=== PATIENT | female | born 1965 | race Caucasian/White ===

== ENCOUNTER 2016-12-03 11:36 | Inpatient (IN) | payer OTHER, MEDICARE ==
[~2016-12-03] VITALS: Ht 157.5 cm; Wt 56.7 kg
--- NOTE | 2016-12-03 11:43 | NUR ---
WILBERTA ON PEER +SI. PER PD AND EMS, PT HAS MULTIPLE MEDICAL PROBLEMS AND STATES SHE WANTS TO . PD STATES PT CALLED BECAUSE SHE THINKS HER IS LEAVING HER AFTER HE GETS HOME FROM WORK TODAY, THAT THERE'S RATS IN HER CONDO, AND HER CONDO IS GOING TO BE TORN DOWN. UPON ARRIVAL PT STATES "I DON'T KNOW WHY I'M HERE, I JUST WANT TO ! I CAN'T GO BACK TO MY CONDO, THERE'S PILES OF STUFF EVERYWHERE, THERE'S GOING TO BE RATS SOON." PT AMBULATES WITH SLOW STEADY GAIT BUT STUMBLES OCCASIONALLY. PT WANDED AND CHANGED.
--- NOTE | 2016-12-03 11:44 | ED PSYCHIATRIC COMPLAINT ---
History of Present Illness General Chief Complaint: Psychiatric Related Complaint Stated Complaint: BIBA +SI] Source: patient Exam Limitations: clinical condition Vital Signs & Intake/Output Vital Signs & Intake/Output Vital Signs Date Time Temp Pulse Resp B/P B/P Pulse O2 O2 Flow FiO2 Mean Ox Delivery Rate 12/05 1609 81 97/62 12/05 1600 81 97/62 12/05 1229 73 94/58 12/05 1216 73 94/58 12/05 0804 79 101/70 12/05 0741 97.8 79 101/70 12/04 1952 98.1 90 90/64 ED Intake and Output 12/05 0000 12/04 1200 Intake Total Output Total Balance Patient 125 lb Weight Allergies Coded Allergies: erythromycin base (PALPATIONS 12/03/16) Triage Nurses Notes Reviewed? yes Duration: unknown duration Severity: moderate, severe Associated Symptoms: anxiety, suicidal ideation HPI: This is a 51-year-old female with history of reported chronic renal disease who presents via EMS from home accompanied by police on a PEER for evaluation for making suicidal statements. She states that she wants to kill herself. Her left the apartment today and she states the condo is going to be torn down and needs to get home. She states she wants to kill herself but she needs to leave and it was a mistake to call anybody to come here today. If she doesn' t get home she is also afraid her apartment will be overrun with rodents. Unable to contribute to any history. Patient actively trying to elope from the ED on evaluation. (MICHELL CORTES MD) Past History Medical History Any Pertinent Medical History? see below for history (UNABLE TO OBTAIN FROM PT) Psychiatric: anxiety (?) Surgical History Surgical History: unobtainable Family History Hx Contributory? No (MICHELL CORTES MD) Review of Systems Review of Systems Constitutional: Reports: see HPI (unable to obtain). (MICHELL CORTES MD) Physical Exam Physical Exam General Appearance: awake, anxious, mild distress, moderate distress, thin Head: atraumatic, normal appearance Eyes: Bilateral: normal appearance, PERRL, EOMI. Ears, Nose, Throat: normal pharynx, hearing grossly normal Neck: normal inspection, supple, full range of motion Respiratory: normal breath sounds, chest non-tender, no respiratory distress Cardiovascular: regular rate/rhythm Neurological/Psychiatric: awake, agitated, alert, anxious Appearance/Memory/Insight: disheveled, impaired insight Behavoir/Eye Contact/Speech: uncooperative Thoughts/Hallucinations: no apparent hallucination SAD PERSONS Done? unobtained due to conditi (WADR ALMEIDA,MICHELL) Progress Differential Diagnosis: PSYCHOSIS, ANXIETY, PARANOIA Plan of Care: Orders Procedure Date/time Status THYROXINE 12/06 06 Active HEPATIC FUNCTION PANEL 12/06 06 Active GAMMA GLUTAMYL TRANSFERASE 12/06 06 Active THYROID ANTIBODY PANEL 12/06 06 Active Change service to 12/05 UNK Active Current Medications Sig/Brett Start time Last Medication Dose Stop Time Status Admin Nystatin 1 CEDRIC TID 12/05 1600 AC 12/05 (Mycostatin) 1635 Acetaminophen 650 MG Q6P PRN 12/04 1045 AC (Tylenol) Al Hydroxide/Mg 30 ML Q4-6 PRN PRN 12/04 1045 AC Hydroxide (Maalox Plus) Gabapentin 300 MG Q6P PRN 12/04 1045 AC (Neurontin) Lorazepam 1 MG Q6P PRN 12/04 1045 AC 12/04 (Ativan) 2218 Magnesium Hydroxide 30 ML AT BEDTIME PRN 12/04 1045 AC (Milk Of Magnesia) Trazodone HCl 50 MG AT BEDTIME NEED.. 12/04 1045 AC 12/04 (Desyrel) 2218 Carbamazepine 200 MG BID 12/03 2200 AC 12/05 (Tegretol) 0743 Laboratory Tests 12/05/16 0600: Total Bilirubin Cancelled, Direct Bilirubin Cancelled, AST Cancelled, ALT Cancelled, Alkaline Phosphatase Cancelled, Total Protein Cancelled, Albumin Cancelled 12/04/2016 7:13:01 AM Patient signed out to me by Dr. Dimas. Pending crisis evaluation. (WARD ALMEIDA,MICHELL) Diagnostic Imaging: Viewed by Me: CT Scan. Discussed w/RAD: CT Scan. Radiology Impression: HEAD CT - WNL Hand-Off Endorsed To: WIL ALMEIDA,PRAMOD Cassidy Endorsed Time: 1899 Pending: consult (CRISIS) (MICHELL CORTES MD) Comments: Patient has been seen and evaluated by the line ordering clinician. A PEC has been signed. Patient to remain in the emergency department tonight anticipation of admission 2 Inpatient Psychiatry morning. Patient signed out to Dr. Cortes on 12/04/2016 at 0700. (WIL ALMEIDA,PRAMOD Cassidy) Departure Departure Time of Disposition: 1041 Disposition: STILL A PATIENT Condition: Stable Clinical Impression Primary Impression: Anxiety Secondary Impressions: Schizophrenia, unspecified, Suicidal ideation Referrals: CYNTHIA GIRON MD (PCP/Family) Departure Forms: Customer Survey General Discharge Information Psych Admission Note Psychiatric Admission: I have seen and evaluated DESTIN REA. I have also reviewed all the pertinent lab results and diagnostic results. DESTIN REA will be admitted to our inpatient Psychiatric unit for treatment and care. (WARD ALMEIDA,MICHELL) Critical Care Note Critical Care Note Critical Care Time: 30-74 min (MICHELL CORTES MD) 12/03/16 1836: Urine Opiates Screen < 100.00, Methadone Screen < 40, Barbiturate Screen < 60, Ur Phencyclidine Scrn < 6.00, Amphetamines Screen 135, U Benzodiazepines Scrn > 800 H, Urine Cocaine Screen < 50, Urine Cannabis Screen < 5.00, Urine Color YEL , Urine Clarity CLEAR, Urine pH 6.0, Ur Specific Gobler 1.010, Urine Protein NEG, Urine Ketones 40 H, Urine Nitrite NEG, Urine Bilirubin NEG@ICTO, Urine Urobilinogen 1.0, Ur Leukocyte Esterase NEG, Ur Microscopic EXAM NOT REQUIRED, Urine Hemoglobin NEG, Urine Glucose NEG 12/03/16 1315: Anion Gap 14, Estimated GFR > 60, BUN/Creatinine Ratio 14.3, Glucose 125 H, Calcium 9.4, Total Bilirubin 1.8 H, AST 41 H, ALT 56 H, Alkaline Phosphatase 76, Total Protein 7.6, Albumin 3.9, Globulin 3.7, Albumin/Globulin Ratio 1.1, TSH 1.540, Free T4 1.95 H, CBC w Diff NO MAN DIFF REQ, RBC 4.39, MCV 91.3, MCH 31.0, RDW 13.6, MPV 8.6, Gran % 74.1, Lymphocytes % 19.1 L, Monocytes % 5.6, Eosinophils % 0.9, Basophils % 0.3, Absolute Granulocytes 5.4, Absolute Lymphocytes 1.4, Absolute Monocytes 0.4, Absolute Eosinophils 0.1, Absolute Basophils 0, PUBS MCHC 34.0, Serum Alcohol < 10.0 12/03/16 1144: RPR Titer/FTA Pending, Lyme Disease Antibody Pending 12/04/2016 7:13:01 AM Patient signed out to me by Dr. Dimas. Pending crisis evaluation. (WARD ALMEIDA,MICHELL) Comments: Patient has been seen and evaluated by the line ordering clinician. A PEC has been signed. Patient to remain in the emergency department tonight anticipation of admission 2 Inpatient Psychiatry morning. Patient signed out to Dr. Cortes on 12/04/2016 at 0700. (WIL ALMEIDA,PRAMOD Cassidy) Departure Departure Time of Disposition: 1041 Disposition: STILL A PATIENT Condition: Stable Clinical Impression Primary Impression: Anxiety Secondary Impressions: Schizophrenia, unspecified, Suicidal ideation Referrals: CYNTHIA GIRON MD (PCP/Family) Departure Forms: Customer Survey General Discharge Information Psych Admission Note Psychiatric Admission: I have seen and evaluated DESTIN REA. I have also reviewed all the pertinent lab results and diagnostic results. DESTIN REA will be admitted to our inpatient Psychiatric unit for treatment and care. (MICHELL CORTES MD) Critical Care Note Critical Care Note Critical Care Time: 30-74 min (MICHELL CORTES MD)
--- NOTE | 2016-12-03 11:50 | NUR ---
1 VALUABLES BAG PLACED IN ER SAFE
--- NOTE | 2016-12-03 11:55 | NUR ---
PT REPORTS SHE SELF DIAGNOSED HER CKD. PT STATES SHE WEIGHS APPROXIMATELY 300LBS. PT APPEARS TO WEIGH 150-175LBS. ANSWERING ONLY SOME QUESTIONS APPROPRIATELY
--- NOTE | 2016-12-03 12:11 | NUR ---
PT ATTEMPTING TO LEAVE DEPARTMENT. DR. HOPPER AT BEDSIDE. ORDER #7 INITIATED. PT ESCORTED BACK TO STRETCHER. SITTERS REMAIN WITHIN DIRECT VIEW
--- NOTE | 2016-12-03 12:30 | NUR ---
PT PLACED INTO [address] HOPPER DUE TO EXTREME AGITATION AND AGGRESSIVE BEHAVIORS. SECURITY PRESENT DURING EVENT
--- NOTE | 2016-12-03 13:26 | NUR ---
PT REMAINS IN RESTRAINTS. CONTINUES TO SAY "I CAN'T STAY. I HAVE TO LEAVE. NO ONE IS GOINT TO PAY THIS HOSPITAL BILL. THEY ARE TEARING DOWN MY CONDO BECAUSE IT'S CONDEMNED AND THERE'S SO MUCH FOOD RATS WILL BE EVERYWHERE". UNABLE TO REDIRECT FROM THIS THOUGHT PROCESS OR PATIENT'S ATTEMPTS TO GET UP TO LEAVE. HOWEVER, PT COOPERATIVE WITH VS, ASSESSMENT & LAB DRAWS.
--- NOTE | 2016-12-03 13:30 | NUR ---
PT REMAINS IN RESTRAINTS. CONTINUES TO SAY "I CAN'T STAY. I HAVE TO LEAVE. NO ONE IS GOING TO PAY THIS HOSPITAL BILL. THEY ARE TEARING DOWN MY CONDO BECAUSE IT'S CONDEMNED AND THERE'S SO MUCH FOOD RATS WILL BE EVERYWHERE." UNABLE TO REDIRECT FROM THIS THOUGHT PROCESS OR PATIENT'S ATTEMPTS TO GET UP TO LEaVE. HOWEVER, PT COOPERATIVE WITH VS, ASSESSMENT AND LAB DRAWS
[2016-12-03 13:39] LABS: ABSOLUTE BASOPHIL COUNT 0 /CUMM (0.0-0.2); ABSOLUTE EOSINOPHIL COUNT 0.1 /CUMM (0.0-0.7); ABSOLUTE GRANULOCYTE CT 5.4 /CUMM (1.4-6.5); ABSOLUTE LYMPH COUNT 1.4 /CUMM (1.2-3.4); ABSOLUTE MONOCYTE COUNT 0.4 /CUMM (0.10-0.60); BASOPHIL % 0.3 % (0.0-2.0); EOSINOPHIL % 0.9 % (0-5); GRANULOCYTE % 74.1 % (42.2-75.2); HEMATOCRIT 40.1 % (37-47); MEAN CORPUSCULAR VOLUME 91.3 FL (81.0-99.0); MEAN PLATELET VOLUME 8.6 FL (7.4-10.4); PLATELET COUNT 172 /CUMM (130-400); RBC DISTRIBUTION WIDTH 13.6 % (11.5-14.5); RED BLOOD CELL CT 4.39 /CUMM (4.20-5.40); WHITE BLOOD CELL COUNT 7.3 /CUMM (4.8-10.8)
--- NOTE | 2016-12-03 13:46 | NUR ---
PT STATES SHE DOES NOT EAT OR DRINK "FOR DAYS" BECAUSE IT "BLOATS MY KIDNEY". TOOK SMALL SIP ONLY OF BRYCE MARIANNE WITH PO MEDICATION
--- NOTE | 2016-12-03 14:45 | NUR ---
PT REFUSED K-DUR DUE TO NOT WANTING TO EAT OR DRINK
--- NOTE | 2016-12-03 14:49 | NUR ---
PT RESTING CALMLY ON BED. SECURITY CALLED. 4PT RESTRAINTS REMOVED.
--- NOTE | 2016-12-03 15:27 | ED PSY CRISIS COLLATERAL NOTE ---
Collateral Note Collateral Note Family/Inform/Ritesh Contacts: 12/03/16 1450 - No utox results yet. 12/03/16 1455 - TC to NOK/Person to Contact, brother Gregory Peña, . He was not aware that the patient was in the hospital. He reports that she had not been feeling well lately, due to kidney problem and fluids. She has been having marital problems, but he is unaware of the details. He reports she has had problems with "cognitivity," memory lapse. He states that she had a "break-down " from a tick bite. He gives a confused report about her history, stating that her cognitive problems may have started in 2007. He describes a hospitalization at [facility] in 2011, stating that it was for a possible stroke or for treatment of the results of the tick bite [R/O neurolyme?] He states that he took her to Dr. Hutson's office in [place] in July, to get her medication refilled, which he thinks was clonazepam. He does not know what kind of MD he is, but thinks it had something to do with allergies. Gregory denies knowledge of any psychiatric hospitalization. He denies any suicide attempts. He does notthink she is using alcohol or street drugs. [facility] [place] with[facility] . Family psychiatric history included anxiety and depression in their mother; other history unknown. 12/03/16 1500 - TC to spouse, Hardik Williamson, (H). LVM and expect return call. 12/03/16 1520 - TC to Dr. Heidi Dumont, automatic driller and reamer, . I spoke with Dori in the office whoe reports that the patient has not been seen in the office since 2014. A Lyme titer was ordered at that time, and the result was negative. [Note: CT LIGHT EQUIPMENT OPERATOR shows Dr. Darnell ordering Alprazolam 0.5 mg #60 tabs for 30 days, filled on 02/15/16, 04/24/16, 07/17/16, 09/14/16, 11/05/16. The MD ordered clonazepam 0.5 mg #60 tabs for 20 days, filled on 08/15/16.] 12/03/16 Dr. Cortes, ED physician has ordered thyroid function test, Lyme titer, RPR/VDRL and CT head, based on the information from the brother. 12/03/16 5034 - TC returned from the patient's spouse, Hardik, who suggests that his cell phone may be a better way to contact him, , rather than the home phone, above. 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 He reports that the patient was hospitalized 4-5 years ago at [facility] for a similar presentation, where she stayed a week. He states that she was "Out of control, like now," had a hard time with reality, and had difficulty with cognitive functioning. When she was discharged, she was to start talk therapy at [facility] in [place], which she atteneded 1-2X/week, but stopped after a while. She was also on diazepam, as best as he remembers. she hasnot seen Dr. Darnell for about 15 months, and went to a new doctor last May,, Dr. Magaña, business systems administrator/religion instructor, . The patient was convinced she needed blood pressure medication, but the MD examined her and found her BP normal, and did not start medication for that. Recently, she stopped taking her alprazolam a few weeks ago. She was talking a lot about dying without a specific threat to herself, so Hardik hid her alprazolam, and gave her what she needed. This past weekend, she woke him up at 2 AM, to tell him that the condos where they live were going to be condemned and torn down. She woke him again 35 minutes later to insist that he listen to her about this matter. He states that she is not using street drugs or alcohol. She has not had recent psychiatric treatment, and Hardik indicates that they have limited means to afford this treatment. He does not know if she has had Lyme disease. He does not think she is safe to discharge to home.
--- NOTE | 2016-12-03 16:15 | NUR ---
PT INFORMED OF NEED FOR CT SCAN. PT AGREED TO GO TO CT. PT TO CT VIA WHEELCHAIR WITH SITTER
--- NOTE | 2016-12-03 16:35 | NUR ---
PT RETURN FROM CT. PER SITTER, PT HAD CT SCAN WITHOUT INCIDENT
--- NOTE | 2016-12-03 16:52 | CT SCAN REPORT ---
EXAMINATION: CT HEAD WITHOUT CONTRAST CLINICAL INFORMATION: Confused. Psychotic. New onset. COMPARISON: None TECHNIQUE: Contiguous axial imaging was performed from the skull base to vertex without intravenous administration of contrast. DLP: 614.11 mGy-cm FINDINGS: There is no evidence of acute intracranial hemorrhage or territorial infarction. No abnormal mass effect or midline shift is seen. Snow to white matter differentiation is well preserved. No extra-axial fluid collections are identified. The ventricles are normal in size. There is no abnormal attenuation within the brain parenchyma. The osseous structures and soft tissues are normal. The mastoid air cells and visualized portions of the paranasal sinuses are well aerated. IMPRESSION: No acute intracranial pathology.
--- NOTE | 2016-12-03 18:39 | NUR ---
PT RESTING IN ROOM. QUIET AT THIS TIME
--- NOTE | 2016-12-03 19:12 | NUR ---
CRISIS WITH PATIENT
--- NOTE | 2016-12-03 20:00 | NUR ---
ASSUMING CARE OF PT AT THIS TIME
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
--- NOTE | 2016-12-03 22:20 | NUR ---
PT SLEEPING. SITTERS WITHIN DIRECT VIEW
--- NOTE | 2016-12-03 22:50 | NUR ---
PHARMACY CALLED FOR TEGRETOL
[2016-12-03 23:00] VITALS: BP 119/68
--- NOTE | 2016-12-03 23:43 | NUR ---
PT MEDICATED WITH TEGRETOL PER EMAR. DENIES COMPLAINTS AT THIS TIME. PT ASKING THAT IF HER COMES HE SHOULD NOT BE ALLOWED BACK.
[2016-12-04] VITALS (7 sets, daily range): BP systolic 90–131; BP diastolic 58–65
--- NOTE | 2016-12-04 03:10 | NUR ---
PT AWAKE FOR CIWA AND VITALS, VSS, CIWA 0. SITTER REMAINS PRESENT. WILL CTM.
--- NOTE | 2016-12-04 05:25 | NUR ---
PT SLEEPING WITH REGULAR RR NOTED. SITTER PRESENT
--- NOTE | 2016-12-04 07:33 | NUR ---
PT APPEARS TO BE SLEEPING AT THIS TIME WITH REGULAR RESPIRATIONS AND EQUAL CHEST RISE AND FALL NOTED. SITTER REMAINS PRESENT FOR SAFETY/OBSERVATION. PER PRODUCT ACCOUNTANT, PT LIKELY ADMIT TO [facility] ONCE BED OPENS UP
--- NOTE | 2016-12-04 11:25 | NUR ---
PT STANDING IN ROOM TALKING TO VISITOR, NO COMPLAINTS VOICED. REFUSING TEGRETOL STATING SHE DOESN'T BELIEVE SHE NEEDS IT. DR LOPEZ PAGED AT 220 REGARDING MULTIPLE LABS ORDERED TO CLARIFY IF NEW DRAW NEEDED OR IF CAN BE ADDED ON AND TO NOTIFY THAT PT REFUSED MEDS. AWAITING CALLBACK.
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
--- NOTE | 2016-12-04 11:40 | NUR ---
CALLBACK REC'D FROM DR LOPEZ, STATING OK TO ADD UPREG TO PRIOR SPECIMEN BUT STATES PT MUST HAVE A NEW BMP DRAWN DUE TO RECIEVING KCL FOR K+ 3.2 YESTERDAY, STATES PT CANNOT GO TO [facility] UNLESS K+ IS WNL. ALSO REQUESTING HGBA1C AND LIPID PANEL TO BE DRAWN AT THE SAME TIME. LAV/SST SENT FROM [facility] NOW. PT AWARE OF NEED TO WAIT FOR LAB RESULTS PRIOR TO FINALIZING POC. DR LOPEZ AWARE PT REFUSING TEGRETOL.
--- NOTE | 2016-12-04 12:14 | SOCIAL WORKER PROG NOTE PSYCH ---
Social Work Progress Note Progress Note Pt presents as very anxious, paranoid, hyperverbal and perseverative. Pt continues to express that she wants to be . "Please just let me . No body want me anymore. Everyone has abandoned me. I can't take care of myself because I'm too bloated to be able to walk. I can't eat because it just makes me more bloated. I smell because I can't shower." Pt was told that she is being [facility]. Social hx was not able to be completed due to pt's current sx.
--- NOTE | 2016-12-04 12:45 | NUR ---
SPOKE WITH ED ON [facility], INFORMED THAT REPEAT LABS ARE ALL WNL AND THAT DR LOPEZ IS AWARE THAT PT REFUSED TEGRETOL AND MD DOES NOT BELIEVE SHE NEEDS IT AT THIS TIME. PER RN, THE FEMALE D/C FROM [facility] HAS BEEN DELAYED THUS THEY CANNOT ACCEPT THIS PT YET. RN TO CALL WHEN THE BED IS AVAILABLE.
--- NOTE | 2016-12-04 12:47 | NUR ---
PER PT REQUEST, PT WAS INFORMED OF THE RESULTS OF HER RENAL FUNCTIONS TESTS TODAY AND YESTERDAY AND EMPHASIZED THAT THEY WERE WNL. PT STATING SHE DOES NOT BELIEVE THAT CAN BE RIGHT "I'M NOT URINATING AND I CAN'T WALK." PT WAS OBSERVED WALKING AROUND WITHOUT DIFFICULTY SEVERAL MINUTES AGO. CURRENTLY LYING IN BED, AWAITING ADMISSION.
--- NOTE | 2016-12-04 13:09 | NUR ---
REPORT CALLED TO ED [facility], ROOM IS READY, TRANSPORT BOOKED.
--- NOTE | 2016-12-04 14:10 | NUR ---
Admission Assessment Patient admitted for psychosis and SI. Patient tearful during the admission process. States her condo is infested with rats that "gnaw at her". She states that she is >300 lb and cannot walk although her weight is 125lb. Patient states her spouse has left her and "what's the sense of living". Patient cannot contract for safety. Patient states she would probably cut herself but is unsure if she can do it here. Patient reports pain due to excessive weight. patient placed on 1:1 to ensure safety.
--- NOTE | 2016-12-04 17:59 | NUR ---
PT IS CALM, COOPERATIVE WITH STAFF AND PEERS, AND COMPLIANT WITH UNIT RULES. PT IS OFTEN IN MILIEU, STAYING MOSTLY IN THE PERIPHERY, LIMITED INTERACTION WITH OTHERS. APPEARS TO PRESENT DELUSIONAL THINKING AT TIMES. MOOD IS STABLE, AFFECT IS EUTHYMIC, COMMUNICATION IS ORGANZIED AND APPEARS NORMAL IN ALL RESPECTS, AND APPETITE IS NORMAL. PT MADE A PASSIVE SIO COMMENT AT 1600 VITALS AND WAS SUBSEQUENTLY CONTRACTED FOR SAFETY. CHARGE WAS NOTIFIED AFTERWARDS.
[2016-12-05] VITALS (8 sets, daily range): BP systolic 94–111; BP diastolic 58–70
--- NOTE | 2016-12-05 | NUR ---
SITTER WITH PATIENT, PT SITTING UP IN BED READING QUIETLY,
--- NOTE | 2016-12-05 02:00 | NUR ---
REMAINS ASLEEP WITH NO COMPLAINTS OFFERED. SITTER REMAINS IN PLACE.
--- NOTE | 2016-12-05 04:02 | NUR ---
REMAINS ASLEEP WITH NO UNSAFE ACTIVITY NOTED. SITTER MAINTAINED.
--- NOTE | 2016-12-05 06:07 | NUR ---
UNEVEBTFUL NIGHT SPENT, NO COMPLAINTS OFFERED. 1:1 OBSERVATION MAINTAINED.
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
--- NOTE | 2016-12-05 13:17 | History & Physical ---
General Information and HPI History of Present Illness: This middle-aged female is admitted for the first time to [facility] psychiatry and was brought in by the ambulance because of bizarre thoughts and abnormal behavior. She reportedly was very agitated and was acting in a psychotic manner and therefore admitted to psychiatry she admits that she has been very anxious and has no quality of life and did not want to live like this and therefore called the ambulance to come to the hospital. She also admits to getting tranquilizers from 2 different physicians in the area and taking them because she thought it will help her anxiety. She claims that she is not eating and drinking much because of her feeling that she retains all the food and water and gets too fat with that. She denies any other specific problems except for pain all over. Denies any shortness of breath palpitations or any chest pains in the front but does complain of body pains all over. She admits to having been admitted in [facility] psychiatry in 2011 and claims that she has gone to a clinic in [place] couple of times but then stopped going because they were not helping her and she has not gone there in many years. She denies taking any psychiatric medications other than the tranquilizers recently and she has not seen any psychiatrist in many years. She denies any other ongoing medical problems. She claims she does not drink any alcohol and does not smoke except for one drink that she took a few days ago when she was aggravated with her . 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 She denies any drug abuse and claims her mother in her 60s and father in his 70s due to diabetes. The mother had heart disease from rheumatic fever as a child ..she claims she has one family physician in [place] that she saw in July and was told that she was okay. Allergies/Medications Allergies: Coded Allergies: erythromycin base (PALPATIONS 12/03/16) Past History Travel History Traveled to [place] past 21 day No Medical History Neurological: NONE EENT: NONE Cardiovascular: hypertension Respiratory: asthma Hepatic: NONE Renal: NONE Musculoskeletal: NONE Psychiatric: anxiety (?) Endocrine: NONE Blood Disorders: NONE Cancer(s): NONE DUPLICATING MACHINE OPERATOR/Reproductive: NONE History of MRSA: No History of VRE: No History of CDIFF: No Isolation History: Standard Surgical History Surgical History: unobtainable Past Family/Social History Psychosocial History ETOH Use: denies use Illicit Drug Use: denies illicit drug use Employment History Employment Disability (Patient is unsure) Profession/Employer 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 EENTM: Denies: no symptoms. Cardiovascular: Denies: no symptoms. Respiratory: Denies: no symptoms. GI: Reports: see HPI (claims she has no bowel moveme). Genitourinary: Reports: see HPI (claims she does not pass any u). Musculoskeletal: Reports: see HPI, muscle pain (pain all over). Skin: Reports: rash (rash in the bellybutton .). Neurological/Psychological: Reports: see HPI, anxiety, confusion, emotional problems. Hematologic/Endocrine: Denies: no symptoms. Immunologic/Allergic: Denies: no symptoms. Exam & Diagnostic Data Last 24 Hrs of Vital Signs/I&O Vital Signs Date Time Temp Pulse Resp B/P B/P Pulse O2 O2 Flow FiO2 Mean Ox Delivery Rate 12/05 1229 73 94/58 12/05 1216 73 94/58 12/05 0804 79 101/12/05 0741 97.8 79 101/70 12/04 1952 98.1 90 90/64 12/04 1606 90 102/58 12/04 1550 90 102/58 12/04 1343 77 131/62 12/04 1343 77 131/62 Physical Exam General Appearance Alert, Cooperative, No Acute Distress Skin No Breakdown, has mild brownish discoloration in the umbilical area due to probable Laureen rash HEENT Atraumatic, PERRLA, EOMI, Mucous Membr. moist/pink Neck Supple, No JVD, No thryomegaly, +2 Carotid Pulse wo Bruit Lymphatic Cervical nl Cardiovascular Regular Rate, Normal S1, Normal S2, No Murmurs, Gallops, Rubs Lungs Clear to Auscultation, Normal Air Movement Abdomen Soft, No Tenderness, No Hepatospenomegaly, No Masses Neurological Exam Findings: Normal Gait, Normal Speech, Strength at 5/5 X4 Ext, Normal Tone, Cranial Nerves 3-12 NL Cranial Nerves II through XII: WNL Extremities No Clubbing, No Cyanosis, No Edema, No Tenderness/Swelling Assessment/Plan Assessment: This middle-aged female is admitted because of psychosis and schizophrenia. Is fairly stable on exam and has mild Laureen diaper rash in her umbilical area for which we'll use nystatin powder for symptomatic treatment. Otherwise she is fairly stable from medical standpoint on exam. Her total thyroxine as well as the liver functions were slightly abnormal and we will repeat them over next day or so to see if there is any change and get thyroid antibody panel to see if she has any abnormalities otherwise he does not require any treatment at this time As Ranked By This Provider Problem List: 1. Anxiety 2. Schizophrenia, unspecified Miscellaneous Miscellaneous Documentation Attending Case Discussed With: GRAY ALMEIDA,GEORGE Schmitz Primary Care Physician: CYNTHIA GIRON MD Patient sees these Specialists none Level of Patient Care: FORD Magaña Attending MD Review Statement Attending Statement Attending MD Statement: examined this patient, reviewed EMR data (avail), discussed with nursing Attending Assessment/Plan: This middle-aged female is admitted for schizophrenia. She does not have any acute medical problem at this time and her blood work is slightly abnormal with slightly elevated liver functions and thyroxine although the TSH is normal. We' ll repeat her total T4 and thyroid antibodies as well as functions to see any ongoing process for any worsening of liver functions and follow-up as needed.
--- NOTE | 2016-12-05 13:25 | NUR ---
PT IS MAINTANED ON 1:1 OBSERVATION FOR SAFETY. STILL ENDORSES SUICIDAL THOUGHTS BUT NO HALLUCINATIONS AT THIS MOMENT. VISIBLE ON THE MILIEU, PACING ONCE IN A WHILE, SOCIALIZES MINIMALLY WITH PEERS AND COOPERATIVE WITH TREATMENT. AFFECT IS FLAT, QUIET AND COOPERATIVE. VITAL SIGNS STABLE, APPETITE ADEQUATE. NO DISCOMFORT NOTED, NO COMPLAINTS VERBALIZED BY PT. NURSING CONTINUES TO MONITOR.
--- NOTE | 2016-12-05 14:36 | SOCIAL WORKER PROG NOTE PSYCH ---
Social Work Progress Note Progress Note SW met with patient for initial session. Pt shared that she came to the hospital by ambulance after calling 911 due to SI with plan to cut her wrist. She stated that she has been struggling with physical illness that leads to a build up of "fluid and muscle" resulting in her inability to engage in self care , particularly showering, due to physical pain. She reported a decrease in appetite and difficulty with sleep. She also reported difficulty with walking and sitting due to physical pain, however, she reported that doctors have been unable to identify a cause/dx. Pt stated that her condo is "being comdemned" and she can no longer live there due to the conditions ("the britt are going to fall in"). Pt believes that a divorce is in process with her and he has the paperwork, however, she is unsure as to where this stands. She refers to him as her "ex-." She reported recent worsening of depression and SI with a plan to cut her wrist. She stated that she believes that she would act on her SI if she left the hospital and would act on the SI while on the unit if given the opportunity to. Nursing staff was informed of this and pt is currently on a 1:1; pt was encouraged to utilize staff if feeling unsafe or should other concerns arise. Pt expressed concerns about where she will go once she leaves the hospital. She appeared to be in agreement with working with the treatment team to identify a discharge plan that would address her needs. Pt struggled to identify supports, however, stated that her brother came to visit her in the ER. She agreed to sign a ANDREA (which she did) for her brother and agreed to have him called to discuss his interest in participating in a family session. Pt stated that she would like to shower and will discuss this with nursing staff as she feels she is unable to on her own at this time.
--- NOTE | 2016-12-05 19:33 | NUR ---
PT IS CALM, COOPERATIVE WITH STAFF AND PEERS, AND COMPLIANT WITH UNIT RULES. OFTEN IN MILIEU, INTERACTING WITH OTHERS TO AN EXTENT, MORE WITH STAFF THEN WITH PEERS. PT PRESENTS SOME DELUSIONAL THINKING AT TIMES. MOOD IS STABLE, AFFECT IS EUTHYMIC TO FULL RANGE, COMMUNICATION IS ORGANIZED AND APPEARS NORMAL IN ALL RESPECTS, AND APPETITE IS NORMAL. PT DENIES SI AT THIS TIME. PT IS CURRENTLY ON A ONE TO ONE.
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
[2016-12-06] VITALS (8 sets, daily range): BP systolic 98–113; BP diastolic 57–78
--- NOTE | 2016-12-06 06:49 | NUR ---
PT IS ON 1:1 FOR INABILITY TO AGREE TO NOT HURT HERSELF. SHE WAS VISITED BY HER , THEN BROTHER, ON THE EVENING SHIFT. PT WENT TO BED EARLY AND SLEPT.
--- NOTE | 2016-12-06 11:41 | NUR ---
PT HAS BEEN CALM AND COOPERATIVE WITH STAFF AND UNIT ROUTINE. SHE IS OFF ONE TO ONE MONITORING AFTER DENYING ANY SUICIDAL THOUGHTS TODAY. PT HAS A CONSTRICTED AFFECT. SHE TOOK A SHOWER TODAY AND IS COMPLIANT WITH HER MED REGIME.SHE IS ATTENDING GROUPS
--- NOTE | 2016-12-06 16:09 | SOCIAL WORKER PROG NOTE PSYCH ---
Social Work Progress Note Progress Note SW met with pt. Pt reports ongoing concerns regarding where she will go after the this inpt treatment as well as who will pay for inpt and outpt tx. Pt also reported ongoing fears that staff and other patients are laughing at her and talking about her. Pt appeared agitated during this meeting. She stated that she does not want her (ex-) to be involved with her current care/ treatment and she "plays along" when he visits her. She identified her brother as a potential support and was in agreement with calling him to discuss a family meeting. She agreed to call with this SW later today when he is no longer at work. Pt reported that she was able to shower today. She reports that she continues to struggle with walking due to fluid build up and "extra weight." Pt denied SI or other safety concerns.
--- NOTE | 2016-12-06 19:06 | CP SOUTH PROGRESS NOTE PSYCH ---
Psych (Inpt) Progress Note Progress Note Include the following elements, when applicable: Involvement in the active treatment of the patient with behavioral observations of the patient and the patient's response to the treatment. Review of the ongoing treatment process in the context of the treatment plan. Indication of how multi-disciplinary staff members are carrying out the treatment plan. Plans for future interventions and recommendations for revision of the treatment plan. Liaison with other physicians/providers. Progress Note: PSYCHIATRIST NOTE, 12/06/2016: I discussed this patient's slow progress thus far, current mental status, treatment and discharge plans with staff team today in the daily morning ITTM and also met with her again myself in individual session. Patient is taking the low dose Zyprexa (5mg 2x/day) which I prescribed for her and denies any side effects, oversedation/daytime fatigue, etc., and ruth agitation has been much reduced. I will continue regular dose at current level for now but have encouraged patient to take the PRN's if she starts feeling again overwhelmed and unable to think clearly or has racing thoughts or continues to experience difficulty with ADL's, walking, anxiety/interacting with others. Patient continues to be convinced that she is terminally "fat" and for this reason cannot walk right or care for herself. We are trying to organize a family meeting before the coming weekend. Today, I received a copy of patient's inpatient record at [facility] from 07/2011 and had a chance to review it; it looks that a quite comprehensive work-up by [facility] internists and neurologists was done at that time which thoroughly ruled out any active "physical" condition, active Lyme Disease or other [employer] involvement in patient's symptomatology at that time. She experienced no gait disturbance during her stay at [facility] but a degree of disorganization and pressured speech was evident; she was considered possibly hypomanic and begun on low dose Risperdal; she was discharged on Risperdal, 2mg HS; Ativan, 0.5mg 2x/day; and atenolol, 25mg daily, to: the [facility] in [place], [place] as well as to [facility] in [place].
--- NOTE | 2016-12-06 20:36 | NUR ---
PT IS CALM, COOPERATIVE WITH STAFF AND PEERS, AND COMPLIANT WITH UNIT RULES. PT IS OFTEN IN MILIEU, INTERACTING WELL WITH OTHERS. PT PRESENTS SOME DELUSIONAL THINKIING AT TIMES. MOOD IS STABLE, AFFECT APPEARS EUTHYMIC TO FULL RANGE, COMMUNICATION IS ORGANIZED AND APPEAR NORMAL IN ALL RESPECTS, AND APPETITE IS NORMAL. PT DENIES SI AT THIS TIME.
[2016-12-07] VITALS (9 sets, daily range): BP systolic 106–123; BP diastolic 61–73
--- NOTE | 2016-12-07 05:54 | NUR ---
PT WATCHED BASKETBALL GAME WITH CARISSA Whittington PT LESS ANXIOUS, LESS BIZARRE, TOOK MEDS, WENT TO BED AFTER THE GAME.
--- NOTE | 2016-12-07 09:00 | SOCIAL WORKER PROG NOTE PSYCH ---
Social Work Progress Note Progress Note SW and pt called pt's brother, Gregory Iraheta, regarding a family meeting, which has been scheduled for 1pm today.
--- NOTE | 2016-12-07 11:26 | NUR ---
PT IS CALM, COOPERATIVE AND COMPLIANT. PT IS OFF ONE TO ONE NOW SHE HAS CONTRACTED FOR SAFETY. PT DENIES ANY SI/HI AT THIS MOMENT. PT IS NOT SCORING ON CIWA Q2. ORGANIZED AND COHERENT WHEN COMMUNICATING. PT IS MINIMALLY VISIBLE WTIHIN THE COMMUNITY AND DOES NOT ENGAGE MUCH WITH STAFF/PEERS. PT DID NOT COME OUT OF BED FOR BREAKFAST THIS MORNING SO SHE DID NOT EAT, ALTHOUGH ENCOURAGED TO. VS ARE STABLE. PT IS CURRENTLY IN BED SLEEPING.
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
--- NOTE | 2016-12-07 17:39 | SOCIAL WORKER TX PLAN PSYCH ---
Treatment Plan - Please Document: - Evidence that there is ongoing collaboration between - the patient and the interdisciplinary team, - including the patient's active participation and - responsibility for engaging in the treatment regimen, - and that the treatment plan is individualized and - relevant to the patient's conditions. - Treatment plan should reflect documentation indicating - that all active therapeutic efforts are included. Strengths/Capabilities: The patient appears to have a supportive , who would like to be involved in treatment. Physical Limitations (Interventions): The patient reports multiple medical issues, however it is unclear that any of them have been verified. Patient Identified Trmt Goals: "I want to feel better. I can't walk, I can't shower and I don't eat anything because it just becomes fat." Discharge Plan: Pt will be discharged to outpatient providers. Discharge plan and identification of providers pending. Problem/Goals #1 Problem #1: Mental Health (anxiety, psychosis) Goal (Short Term): Pt will identify at least 1 coping skill to effectively manage and reduce her anxiety and/or other MH sx. Goal (Senior Care): Pt will identify strategies to reduce her anxiety and MH sx, reporting her anxiety to be no higher than a 4/10. Interventions: Pt will be offered to attend group therapy, medication management, individual therapy and discharge planning. Modalities: Group therapy, individual therapy, family therapy and medication management. Problem/Goals #2 Problem #2: ADL's - pt reports showering irregularly and eating minimal amounts of food Goal (Short Term): Increase ADL's - pt will report engaging in at least one ADL per day (i.e. showering). Goal (Senior Care): Pt will report that she is independently engaging in two ADL's prior to discharge. Interventions: Pt will be offered group therapy, family therapy, individual therapy, medication management. Modalities: Group, individual and family therapy; medication management. DSM5/PS Stressors/Medical Prob Diagnosis' (DSM 5, Stressors, Medical): F29 Unspecified Schizophrenia Spectrum and other Psychotic Disorder Current GAF: 25 Treatment Team - Responsibilities of members of the treatment team include: - Medication Management- MD or AUTO BODY REPAIR TEACHER - Medication Administration and Monitoring- Nurse - Group Therapy- Occupational Therapist - 1:1 Therapy,Disch Planning,family involvement-Media Technician
--- NOTE | 2016-12-07 19:44 | NUR ---
PT IS CALM, COOPERATIVE WITH STAFF AND PEERS, AND COMPLIANT WITH UNIT RULES. BOTH IN AND OUT OF MILIEU, SOMETIMES SLEEPING IN PT ROOM. SLIGHTLY ISOLATIVE AND WITHDRAWN. MOOD IS STABLE, AFFECT IS EUTHYMIC TO FULL RANGE, COMMUNICATION IS ORGANIZED AND APPEARS NORMAL IN ALL RESPECTS, AND APPETITE IS NORMAL. PT DENIES SI AT THIS TIME.
[2016-12-08] VITALS (8 sets, daily range): BP systolic 108–121; BP diastolic 59–74
--- NOTE | 2016-12-08 05:00 | NUR ---
SLEPT POOR UNTIL ABOUT 0215. MEDICATION GIVEN FOR SLEEP AND RACING THOUGHTS WITH GOOD EFFECT NOTED.
--- NOTE | 2016-12-08 13:25 | NUR ---
PT IS ISOLATIVE FOR MOST OF THE DAY WITH A STABLE MOOD AND FLAT AFFECT, + APPETITE AND WENT TO PLANNING MEETING AND GOAL WAS TO WALK AROUND AND SOCIALIZE MORE. PT DID NOT ATTEND FOCUS GROUP THIS AFTERNOON, VITAL SIGNS ARE STABLE AND WHEN ASKED DIRECTLY DENIES THOUGHTS TO HARM SELF.
--- NOTE | 2016-12-08 14:26 | CP SOUTH PROGRESS NOTE PSYCH ---
Psych (Inpt) Progress Note Progress Note Include the following elements, when applicable: Involvement in the active treatment of the patient with behavioral observations of the patient and the patient's response to the treatment. Review of the ongoing treatment process in the context of the treatment plan. Indication of how multi-disciplinary staff members are carrying out the treatment plan. Plans for future interventions and recommendations for revision of the treatment plan. Liaison with other physicians/providers. Progress Note: Chart reviewed and progress d/w nursing staff. Interviewed patient this morning. She reports feeling "flat", depressed, no energy, poor sleep, limited appetite. Denies SI/HI. Somatic delusions persist, today describing worry about her body retaining liquid due to kidney dysfunction. Vitals wnl. No new labs today. MSE: Poorly groomed CF supine on bed. Cooperative though limited EC. Speech quiet, monotnous. Mood "not good". Affect constricted. TP impoverished. TC + somatic delusions, without SI/HI. Denies perceptual disturbance. Cognition grossly intact. I/J limited. A/P: Continue present mgmt as per primary team.
--- NOTE | 2016-12-08 19:23 | NUR ---
PT HAS BEEN IN BED FOR MOST OF THE DAY. WHEN SHE IS NOT IN BED SHE IS SEEN SITTING IN FRONT OF THE FISH TANK. PT SOCIALIZES WITH VISITORS AND SELECT PEERS MORE THAN STAFF. SHE IS QUIET, WITHDRAWN AND ISOLATIVE. PT HAS BEEN COMPLANT BUT CONSTRICTED. PT DENIES ANY THOUGHTS OF SI AT THIS TIME.
[2016-12-09] VITALS (8 sets, daily range): BP systolic 92–112; BP diastolic 63–73
--- NOTE | 2016-12-09 12:48 | CP SOUTH PROGRESS NOTE PSYCH ---
Psych (Inpt) Progress Note Progress Note Include the following elements, when applicable: Involvement in the active treatment of the patient with behavioral observations of the patient and the patient's response to the treatment. Review of the ongoing treatment process in the context of the treatment plan. Indication of how multi-disciplinary staff members are carrying out the treatment plan. Plans for future interventions and recommendations for revision of the treatment plan. Liaison with other physicians/providers. Progress Note: Chart reviewed and progress d/w nursing staff. Interviewed patient this morning. She remains highly somatically preoccupied. Complains of constipation, water retention, severe obesity, and lifts up her shirt to squeeze her belly. Otherwise complains of feeling severely depressed and anxious, unable to sleep for any appreciable stretch. "I just wish I would fall asleep and never wake up ". Vitals wnl. No new labs today. MSE: Poorly groomed CF supine on bed. Cooperative though limited EC. Speech quiet, monotnous. Mood "horribly depressed". Affect constricted. TP impoverished. TC + somatic delusions, + wish though denies plans to harm self or intent. Denies HI. Denies perceptual disturbance. Cognition grossly intact. I/J limited. A/P: Ongoing depression with psychotic features. Continue current management. It is unclear as to whether constipation is reality based, however she has prn options available to her.
--- NOTE | 2016-12-09 13:03 | NUR ---
PT HAS BEEN COMPLIANT AND COOPERATIVE WITH UNIT RULES. PT HAS BEEN ISOATLIVE IN BED FOR MOST OF SHIFT BUT DOES TAKE LAPS AROUND THE UNIT. PT HAS MINIMAL INTERACTION WITH OTHER PEERS. PT DID ATTEND PLANNING MEETING BUT DID NOT ATTEND FOCUS GROUP. PT MOOD IS STABLE WITH A FLAT AFFECT. PT REPORTS FEELING ANXIOUS TODAY. PT DENIES SI THOUGHTS.
--- NOTE | 2016-12-09 19:45 | NUR ---
PT HAS BEEN WALKING THRU THE HALLWAY WITH PEERS AND SOCIALIZES WITH SELECT PEERS AND STAFF. SHE IS QUIET AND APPEARS CONSTRICTED AND SLIGHTLY DEPRESSED BUT HAS NOT REPORTED ANY MENTAL OR EMOTIONAL DISTRESS. SHE HAS DENIED ANY THOUGHTS TO ACT ON SI AT THIS TIME BUT CAN EXPRESS PASSIVE INNUENDOS REGARDING NOT CARING WHAT HAPPENS IN THE FUTURE. PT HAS BEEN URGED TO TALK WITH STAFF FURTHER IF FEELINGS CHANGE OR WORSEN.
[2016-12-10] VITALS (8 sets, daily range): BP systolic 103–133; BP diastolic 61–73
--- NOTE | 2016-12-10 10:26 | CP SOUTH PROGRESS NOTE PSYCH ---
Psych (Inpt) Progress Note Progress Note Chart reviewed. BP 105/65 mmHg, Pulse 65/min, Temp 96.6 F Sleep log indicated that Lindsey slept well No new labs today Interviewed patient in bed this morning. Background: [address] [place] [address] Admission for a 51-year-old White woman currently living in a condo in [place], [place]., with her , and unemployed/on disability. Admitted because "I have real kidney disease...I don't know why I am here...I just want to ...I can't go back to my condo; there're piles of stuff everywhere; there' s going to be rats soon...Please let me . Nobody wants me anymore. Everyone has abandoned me. I can't take care of myself because I'm too bloated to be able to walk. I can't eat because it just makes me more bloated. I smell because I can't take a shower." Mental Status Update: Patient reported that she remains depressed and anxious, does not want antidepressants, named 4 SSRIs she has taken without benefit, despite sleep log she reported poor sleep and wanted something for anxiety. Cooperative, calm, sat in bed and had good eye contact, reduced speech, mood "depressed". Affect constricted. She seemed coherent, I was unable to elicit delusions, occasional wishing but no thoughts of suicide, denies plans to harm self or intent. Denied violent thoughts or HI. Denied hallucinations, cognition seemed grossly intact. A/P: Depressed and anxious, did not want antidepressants, agreeable to gabapentin for anxiety Add [id number] mg three times daily Lindsey will follow up with her regular treatment team tomorrow
--- NOTE | 2016-12-10 13:22 | NUR ---
LYING IN BED MOST OF SHIFT. EATING BY NIBBLING ON BITS OF MEAL THROUGHOUT MORNING. REPONDS EASILY WHEN SPOKEN TO BUT DOES NOT FURTHER ENGAGE. MOOD IS STABLE FLAT AFFECT. DENIES TOHUGHTS OF SELF HARM WHEN ASKED
--- NOTE | 2016-12-10 19:00 | NUR ---
PT IS ISOLATIVE/WITHDRAWN, SPENDING LOMG PERIODS OF TIME IN PT ROOM. SLIGHTLY LETHARGIC, SLEEPING IN PT ROOM AT TIMES. WHEN IN MILIEU, WILL INTERACT TO SOME EXTENT WITH OTHERS. MOOD IS STABLE, AFFECT APPEARS EUTHYMIC TO FULL RANGE, COMMUNICATION IS ORGANIZED AND APPEARS NORMAL IN ALL RESPECTS, AND HAS A REDUCED APPETITE - NOT EATING DINNER. PT DENIES SI AT THIS TIME.
--- NOTE | 2016-12-11 05:41 | NUR ---
ENSURE ORDERED FOR PT BECAUSE SHE REMAINS DELUSIONAL AROUND FOOD INTAKE STILL. 1MG ATIVAN PRN GIVEN AT 2220 FOR SLEEP ASSIST. PT APPEARED TO SLEEP. NEURONTIN ADDED FOR DEPRESSION.
[2016-12-11 07:55] VITALS: BP 101/67
[2016-12-11 08:18] VITALS: BP 101/67
--- NOTE | 2016-12-11 11:49 | NUR ---
PT STATED HER GOAL WAS TO STAY POSITIVE TODAY. SHE SEEMED MORE ALERT AND SHE ATTENDED GROUPS THIS MORNING. SHE IS COMPLIANT WITH HER MED REGIME. SHE REMAINS SOMATIC AND HAS FIXED THOUGHTS ABOUT HER WEIGHT AND APPEARANCE. SHE DENIED SUICIDAL THOUGHTS WHEN ASKED
[2016-12-11 12:44] VITALS: BP 94/48
--- NOTE | 2016-12-11 15:20 | CP SOUTH PROGRESS NOTE PSYCH ---
Psych (Inpt) Progress Note Progress Note Include the following elements, when applicable: Involvement in the active treatment of the patient with behavioral observations of the patient and the patient's response to the treatment. Review of the ongoing treatment process in the context of the treatment plan. Indication of how multi-disciplinary staff members are carrying out the treatment plan. Plans for future interventions and recommendations for revision of the treatment plan. Liaison with other physicians/providers. Progress Note: PSYCHIATRIST NOTE, 12/11/2016: I discussed this patient's slow progress to date, current mental status, treatment and discharge planning with staff team today in the daily morning ITTAdán and Joi Arroyo LCSW, and I met together with patient in individual session. Though the content of patient's somatic delusions has little changed since when I last met with her on 12/07/2016, the pressure and emphasis/ emphatic quality to her pronouncements and attempt to convince the listener of her terminal plight has lessened in intensity. We were actually able to enage in a discussion of where she plans to live after discharge; I pointed out that if she was going back to living with we would have to hold a couple's meeting with the two of them; surprizingly, patient agreed to the latter without argument or prevarication. Patient had no specific complaints about current medication regimen though she did note feeling tired during the daytime; I plan to move entire dose of Zyprexa to HS. Again today, I spoke with patient about possibly adding at least a low dose of an anti-depressant as she has acknowledged "being depressed" though attributing this to her "hopeless condition." Patient reported negative experiences with anti-depressants in the past. However, she was willing to discuss addition of a primary mood stabilizer to current treatment; after further discussion and description of R/B/SE, patient agreed to starting a clinical trial on [place] carbonate with 300mg this evening, doubling dose to 300mg 2x/day tomorrow, 2016.
--- NOTE | 2016-12-11 15:29 | SOCIAL WORKER PROG NOTE PSYCH ---
Social Work Progress Note Progress Note Dr. Avery and SW met with pt. Pt reported ongoing health concerns and being unable to function independently or with any employment as a result. Pt reported some improvement with sleep. Pt was unable to identify possible living arrangements following discharge from this inpt stay. She agreed to sign a ANDREA for her and was in agreement to schedule a family meeting with him. SW and pt called her and a family meeting has been scheduled for 12/12/16 at 3:30pm with Dr. Avery.
[2016-12-11 16:27] VITALS: BP 113/65
--- NOTE | 2016-12-11 17:57 | NUR ---
PT IS CALM, COOPERATIVE WITH STAFF AND PEERS, AND COMPLIANT WITH UNIT RULES. PT IS ISOLATIVE AND WITHDRAWN, SPENDING LONG PERIODS OF TIME IN PT ROOM. APPEARS LETHARGIC, SLEEPING FOR LONG PERIODS OF TIME. MOOD IS STABLE, AFFECT IS EUTHYMIC TO FULL RANGE, COMMUNICATION IS ORGANIZED AND APPEARS NORMAL IN ALL RESPECTS, AND APPETITE IS NORMAL. PT DENIES SI AT THIS TIME.
[2016-12-11 20:18] VITALS: BP 97/54
[2016-12-12 07:53] VITALS: BP 107/61
--- NOTE | 2016-12-12 11:46 | NUR ---
PT STATED SHE HAD A RESTLESS SLEEP LAST NIGHT AND HER GOAL WAS TO STAY POSITIVE. SHE ATTENDS MOST OF THE GROUPPS WHEN PROMPTED. SHE IS CALM AND COOPERATIVE BUT REMAINS WITH A SOMATIC DELUSIONAL FOCUS ELVA R/T HER WEIGHT. SHE DENIES SUICIDAL THOUGHTS AT THIS TIME
[2016-12-12 11:56] VITALS: BP 99/51
--- NOTE | 2016-12-12 16:09 | SOCIAL WORKER PROG NOTE PSYCH ---
Social Work Progress Note Progress Note Dr. Avery and this SW met with pt and her . Patient's progress was discussed as well as eventual discharge plans. Pt and her expressed interest in her returning home and concerns about this. Strategies to manage any boundaries/concerns were explored and further information will be obtained: -transportation to and from treatment -follow up medical care to address medical concerns through medical provider ( Dr. Hutson) -visiting nurse -case manager specialist Another family session will be scheduled for 12/17/16, time pending, to further assess progress and potential discharge planning.
[2016-12-12 16:13] VITALS: BP 115/69
--- NOTE | 2016-12-12 17:05 | CP SOUTH PROGRESS NOTE PSYCH ---
Psych (Inpt) Progress Note Progress Note Include the following elements, when applicable: Involvement in the active treatment of the patient with behavioral observations of the patient and the patient's response to the treatment. Review of the ongoing treatment process in the context of the treatment plan. Indication of how multi-disciplinary staff members are carrying out the treatment plan. Plans for future interventions and recommendations for revision of the treatment plan. Liaison with other physicians/providers. Progress Note: PSYCHIATRIST NOTE (COUPLE'S MEETING), 12/12/2016: I discussed this patient's slow progress to date, current mental status, treatment and dishcarge planning with staff team today in the daily morning BRITTANI and Joi Arroyo LCSW, and I met with patient and her Hardik in a couple's session. Though this was not what one might call a "happy" encounter I found that both patient and spouse behaved better overall than I had feared; patient was not so accusatory and not as angry and critical as I thought they might be and each made some rational points which the other partner listened to without then completely invalidating what the other had said. Patient did not make as much of her physical complaints as she has been doing with us and spouse was not as angry/irritable with regard to her symptoms as he was said to have been in the past. has been visiting most nights and was in no way opposed to patient returning home after discharge from hospital; however, he did say, "This better not happen again in 6 months!" Since the last episode was 5 years ago and patient did not have proper continuing/ongoing outpatient care and monitoring in 2011 I would think that scenerio unlikely provided that is that aftercare following this admission is adequate. Patient denies any side effects after initial doses of [place] carbonate; she is now up to 600mg/day; she is not complaining directly about current dose of Zyprexa but does say she is feeling tired/fatigued during the day though she attributes this to "being so heavy I can hardly move, walk."
--- NOTE | 2016-12-12 17:40 | NUR ---
PT IS CALM, COOPERATIVE WITH STAFF AND PEERS, AND COMPLIANT WITH UNIT RULES. PT IS OFTEN IN MILIEU, INTERACTING WITH WELL OTHERS. MOOD IS [place], AFFECT APPEARS EUTHYMIC TO FULL RANGE, COMMUNICATION IS ORGANZIED AND APPEARS NORMAL IN ALL RESPECTS, AND APPETITE IS NORMAL. PT DENIES SI AT THIS TIME.
[2016-12-12 19:37] VITALS: BP 120/66
--- NOTE | 2016-12-12 22:56 | NUR ---
2200 PT. ASKED BY THIS NURSE TO COME OUT TO TAKE HER MEDICATIONS ZYPREXA MELATONIN AND TRAZADONE. PT. STATED " I RATHER NOT TAKE THOSE MEDICATIONS TOOK LAST NIGHT AND FELT LIKE I WAS GOUNG TO ''. STATED HER LEGS FELT FUNNY, COULD NOT ELABORATE ON OTHER SYMPTOMS JUST SAYING I DO NOT WANT TO TAKE THEM AND STATED SHE TOLD THE DOCTOR TODAY. PT. DID NOT INFORM STAFF OF ANY ODD FEELINGS LAST NIGHT DURING 15MIN CHECKS PT. SLEPT WELL.
[2016-12-13 07:36] VITALS: BP 94/52
[2016-12-13 12:03] VITALS: BP 104/60
--- NOTE | 2016-12-13 13:17 | NUR ---
PT IS VISIBLY MORE EXPRESSIVE TODAY, SMILING AND ENGAGING WITH STAFF/PEERS. PT HAS BEEN IN THE COMMUNITY FOR THE ENTIRE AM SHIFT POSITIVELY INTERACTING WITH PEERS AND STAFF MEMBERS. PT HAS ATTENDED ALL MORNING GROUPS. 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 VS ARE STABLE AND DENIES ANY SI/HI TO THIS MHW.
[2016-12-13 15:46] VITALS: BP 102/68
--- NOTE | 2016-12-13 16:54 | SOCIAL WORKER PROG NOTE PSYCH ---
Social Work Progress Note Progress Note 4:20pm: SW met with pt. Pt reported "I'm just really depressed" which she identified is triggered by anxieties about discharge plans that are still pending. 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 Avery about this. Pt reported perceived rejection by pt's and staff on this unit, however, continues to try to attend groups. Pt stated that she was not invited to the AA meeting and wished she had been as she reported past "problems with drinking." SW encouraged her to speak to staff about this and provided support as she did so after meeting. Regarding SI, pt stated "I'm better off ." She denied any plan, means or intent. Sw and pt discussed how she felt about the family meeting, which caused pt to return to concerns about d/c. SW reviewed potential services that are being explored (such as a visiting nurse, transportation, case management, outpt services and medical services through her primary care provider). She appeared to be accepting of these services. SW will follow up with potential providers. Pt was encouraged to continue with attending groups and utilizing staff as needed. She stated that she was unsure of whether her will visit [facility]. She agreed to attend a second family meeting scheduled for 4pm on 12/17/16.
--- NOTE | 2016-12-13 17:40 | NUR ---
PT IS CALM, COOPERATIVE WITH STAFF AND PEERS, AND COMPLIANT WITH UNIT RULES. OFTEN IN PERIPHERY, LIMITED INTERACTION WITH OTHERS. MOOD IS STABLE, AFFECT IS EUTHYMIC TO FULL RANGE, COMMUNICATION IS ORGANIZED AND APPEARS NORMAL IN ALL RESPECTS. PT HAS A LIMITED APPETITE. PT DENIES SI AT THIS TIME.
[2016-12-13 19:58] VITALS: BP 109/64
--- NOTE | 2016-12-13 21:05 | CP SOUTH PROGRESS NOTE PSYCH ---
Psych (Inpt) Progress Note Progress Note Include the following elements, when applicable: Involvement in the active treatment of the patient with behavioral observations of the patient and the patient's response to the treatment. Review of the ongoing treatment process in the context of the treatment plan. Indication of how multi-disciplinary staff members are carrying out the treatment plan. Plans for future interventions and recommendations for revision of the treatment plan. Liaison with other physicians/providers. Progress Note: PSYCHIATRIST NOTE, 12/13/2016: I discussed this patient's slow progress to date, current mental status, treatment and discharge planning with staff team today in the daily morning ITTM and also met with her again myself in individual session. Patient had refused both her evening [place] (300mg) and HS Zyprexa (15mg) last night because of "side effects," particularly a feeling of "restlessness" and inability to keep her legs from moving which disrupted her sleep making her more irritable this morning. Since this was most likely akathisia related to the rapid titration of Zyprexa up to 15mg/day, we agreed to lower the Zyprexa dose to 5mg, beginning tonight and continue the current upward titration in dose of [place]. Patient was less preoccupied with her "physical" symptoms today and more interested in it being possible for her to return home on discharge; we discussed yesterday's couple's meeting; patient said her was "on his best behavior" then but can still be angry and verbally unkind though, again, she did not seem so worried about that and able to attribute spouse's behavior to being "just the way he is," that he just can't keep from being critical. Patient did not forsee any major concerns with regard to her returning to live with . Her mood has been improving; in fact, she was not nearly as upset/agitated in the meeting with spouse as I had feared prior to it.
--- NOTE | 2016-12-14 06:48 | NUR ---
PT IN GOOD SPIRITS. SHE AWOKE A FEW TIMES IN THE NIGHT.
[2016-12-14 07:38] VITALS: BP 129/63
[2016-12-14 12:31] VITALS: BP 116/69
--- NOTE | 2016-12-14 13:49 | NUR ---
PT WAS VISIBLE IN THE MILIEU THROUGHOUT THE DAY. HER GOAL WAS TO TRY AND BE MORE SOCIAL AND GO TO GROUPS. PT HAS BEEN MAKING HER GOAL, AND ATTENDING GROUPS TODAY. SHE IS SMILING A LOT MORE, INTERACTING, AND EATING BETTER. PT HAS BEEN COOPERATIVE WITH STAFF DIRECTION, AND DENIES THOUGHTS OF HURTING HERSELF WHEN ASKED.
--- NOTE | 2016-12-14 15:32 | CP SOUTH PROGRESS NOTE PSYCH ---
Psych (Inpt) Progress Note Progress Note Include the following elements, when applicable: Involvement in the active treatment of the patient with behavioral observations of the patient and the patient's response to the treatment. Review of the ongoing treatment process in the context of the treatment plan. Indication of how multi-disciplinary staff members are carrying out the treatment plan. Plans for future interventions and recommendations for revision of the treatment plan. Liaison with other physicians/providers. Progress Note: PSYCHIATRIST NOTE, 12/14/2016: I discussed this patient's slow progress to date, current mental status, treatment and discharge planning with staff team today in the daily morning ITTM and our medical student, CRISTIN Kaufman, met with her together in individual session. Patient's affect continues to broaden and brighten despite continued preoccupation with somatic (delusional) themes (e.g. that she can't move around readily or do anything "because I'm 300 pounds...look at me!"; conviction that she is suffering terminal illness and wlll be very soon-- even told us today that the staff members who come around to check on her every 15 minutes at night are doing so to check to see if she is still alive or has from her weakened condition); she is able to carry on discussions of other issues and is especially focused on "being able to go home again" following discharge next week. Notably, patient is not engaging in her previous relentless castigation of spouse but in contrast now saying she doesn't think there will be any major problems "as long as he lets me come home..." We plan to meet with the couple on 12/17/2016 at 4pm and to discharge patient (to [facility] or more likely OPS at that time). Patient is tolerating upward titration in dose of [place] well to date; today dose will increase from 600mg to 900mg/day; we will obtain Li+ level and TSH on 12/17/2016; patient shows no side effects on [place] to date, no new symptoms to add to her pre-existing concerns but is notably less pressured and agitated during individual interviews now and this despite lowering of Zyprexa dose; since dose of Zyprexa has been tapered from 15mg to 5mg HS patient's c/o restless legs at night have resolved; I will continue the lower dose, particularly in view of the upward titration of [place] ; patient has been resisting addition of an anti-depressant medication. Patient has been increasingly "playful," referring to me as "the well-dressed man" from the old [employer] song, and getting quite a chuckle herself out of this association.
[2016-12-14 15:36] VITALS: BP 124/60
--- NOTE | 2016-12-14 18:22 | SOCIAL WORKER PROG NOTE PSYCH ---
Social Work Progress Note Progress Note 5:10pm: SW met with pt. Pt reported that she did not sleep well due to being disturbed by staff for regular checks. She reported increased interaction with patients on the unit. SW encouraged her to continue with attending groups as well as these interactions. Pt reported ongoing depression and anxiety, however , identified this as primarily due to concerns about discharge plans as well as ongoing health concerns. She admitted that her anxiety and depression would likely decrease as discharge plans become more secure. Pt denied SI/HI/AH/VH and reported some increased appetite. SW will continue to work with the treatment team in order to finalize d/c plans. Pt was in agreement with this as well as to meet with her and Dr. Avery on 12/17/16 at 4pm.
[2016-12-14 19:54] VITALS: BP 113/66
--- NOTE | 2016-12-14 21:37 | NUR ---
Pt is out in the community, mood is stable and full range in affect. Compliant and cooperative with the staff. no complaints offered. Interacts well with her peers during the shift. Will continue to monitor the pt overnight.
--- NOTE | 2016-12-14 21:59 | NUR ---
PT REPORTING NO BM X 9 DAYS. PT ADMINISTERED MOM. VSS. ABDOMEN SOFT WITH POSITIVE BOWEL SOUNDS ALL FOUR QUADRANTS. NO NAUSEA OR VOMITING.
--- NOTE | 2016-12-15 05:28 | NUR ---
PT IN GOOD SPIRITS. PT APPEARED TO SLEEP WELL.
[2016-12-15 07:51] VITALS: BP 104/64
[2016-12-15 12:20] VITALS: BP 89/54
--- NOTE | 2016-12-15 12:41 | NUR ---
PT IS CALM AND COOPERATIVE WITH STAFF AND PEERS. SHE REMAINS WITH A SOMATIC FOCUS AND REPORTED TO THE DOCTOR TODAY THAT SHE IS NOT VOIDING AND HAS NOT VOIDED SINCE ADMISSION. PT IS VOIDING QS AND ADMITS THIS AFTER CONFRONTED BY STAFF. SHE IS GOING TO GROUPS AND HER GODAL WAS TO WORRY LESS TODAY
--- NOTE | 2016-12-15 12:47 | NUR ---
PT DENIES SUICIDAL THOUGHTS OR THOUGHTS OF SELF HARM AT THIS TIME
--- NOTE | 2016-12-15 14:09 | CP SOUTH PROGRESS NOTE PSYCH ---
Psych (Inpt) Progress Note Progress Note Include the following elements, when applicable: Involvement in the active treatment of the patient with behavioral observations of the patient and the patient's response to the treatment. Review of the ongoing treatment process in the context of the treatment plan. Indication of how multi-disciplinary staff members are carrying out the treatment plan. Plans for future interventions and recommendations for revision of the treatment plan. Liaison with other physicians/providers. Progress Note: Pt notes that she has not been able to have a bowel movement or urinate in days. Per RNs this is not the case. Pt noted some difficulty with sleep. Unsure if meds helpful. Denies SI or HI. Current Medications Sig/Brett Start time Last Medication Dose Route Stop Time Status Admin Acetaminophen 650 MG Q6P PRN 12/04 1045 AC 12/13 PO 0626 Al Hydroxide/Mg 30 ML Q4-6 PRN PRN 12/04 1045 AC Hydroxide PO Diphenhydramine HCl 25 MG AT BEDTIME PRN 12/15 1145 AC PO Docusate Sodium 100 MG BID 12/15 1141 AC 12/15 PO 1244 [place] Carbonate 600 MG 12/14 AC 12/14 PO 2051 [place] Carbonate 300 MG 0800 12/14 0800 AC 12/15 PO 0858 Magnesium Hydroxide 30 ML AT BEDTIME PRN 12/04 1045 AC 12/14 PO 2143 Melatonin 10 MG AT BEDTIME 12/15 2200 AC PO Melatonin 10 MG AT BEDTIME NEED.. 12/14 1415 DC 12/14 PO 2144 Olanzapine 5 MG 0 12/13 2200 AC 12/14 PO 2146 Olanzapine 2.5 MG Q4H PRN 12/11 1515 AC PO Polyethylene Glycol 17 GM DAILY PRN 12/15 1145 AC 12/15 PO 1244 Senna 187 MG AT BEDTIME 12/15 2200 AC PO Vital Signs Date Time Temp Pulse Resp B/P B/P Pulse O2 O2 Flow FiO2 Mean Ox Delivery Rate 12/15 1220 51 89/54 12/15 0751 97.5 56 104/64 / 1954 98.6 58 113/66 12/14 1536 63 124/60 MSE Appears as stated age. Cooperative behavior, good, appropriate eye contact. Nl speech rate and prosody. No psychomotor retardation or agitation. Mood fine Affect rritable, constricted, appropriate, non-liable. Linear and goal directed thought process but quite somatically preoccupied and perseverative. Denies SI or HI. Does not appear to be responding to internal stimuli. Denies AVHs, paranoia, or delusions. I/J: limited A/P: Pt with unspecified psychosis vs delusional disorder, somatic type with some improvement in TP since admission but continued somatic preoccupation. - Added benadryl 50mg PRN sleep, will closely monitor for paradoxical response given age - Senna, colace and miralax PRN added - Pt has been urinating per RNs. - Encourage groups
[2016-12-15 16:13] VITALS: BP 102/62
--- NOTE | 2016-12-15 17:54 | NUR ---
PT IS CALM, COOPERATIVE WITH STAFF AND PEERS, AND COMPLIANT WITH UNIT RULES. OFTEN IN MILIEU, THOUGH STAYING IN PERIPHERY, WITH LIMITED INTERACTION WITH OTHERS. MOOD IS STABLE, AFFECT APPEARS EUTHYMIC TO FULL RANGE, COMMUNICATION IS ORGANIZED AND APPEARS NORMAL IN ALL RESPECTS, AND APPETITE IS NORMAL. PT DENIES SI AT THIS TIME.
[2016-12-15 19:39] VITALS: BP 120/59
--- NOTE | 2016-12-16 05:12 | NUR ---
PATIENT RESTED QUIETLY IN HER BED ALL NIGHT, APPEARED TO SLEEP.
[2016-12-16 08:02] VITALS: BP 101/62
--- NOTE | 2016-12-16 08:27 | CP SOUTH PROGRESS NOTE PSYCH ---
Psych (Inpt) Progress Note Progress Note Include the following elements, when applicable: Involvement in the active treatment of the patient with behavioral observations of the patient and the patient's response to the treatment. Review of the ongoing treatment process in the context of the treatment plan. Indication of how multi-disciplinary staff members are carrying out the treatment plan. Plans for future interventions and recommendations for revision of the treatment plan. Liaison with other physicians/providers. Progress Note: Pt continues to note low urine output but does not save it to be charted by the RNs or documented to have occured. Took senna/colace and miralax one day ago. She is irritable today as she feels that the peers and staff dont like her. She notes that visited yesterday. "He wants me to go back to the way I was. " She notes passive SI, "I just wish I go just go away forever," and denies active SI or HI, "I'm too chicken or scared for that." Notes worsening depression. Though she notes she did not sleep all night, she was noted by RNs to be sleeping. Current Medications Sig/Brett Start time Last Medication Dose Route Stop Time Status Admin Acetaminophen 650 MG Q6P PRN 12/04 1045 AC 12/13 PO 0626 Al Hydroxide/Mg 30 ML Q4-6 PRN PRN 12/04 1045 AC Hydroxide PO Diphenhydramine HCl 25 MG AT BEDTIME PRN 12/15 1145 AC PO Docusate Sodium 100 MG BID 12/15 1141 AC 12/15 PO 2135 [place] Carbonate 600 MG 12/14 AC 12/15 PO 2010 [place] Carbonate 300 MG 0800 12/14 0800 12/15 PO 0858 Magnesium Hydroxide 30 ML AT BEDTIME PRN 12/04 1045 AC 12/14 PO 2143 Melatonin 12 MG AT BEDTIME 12/16 220 UNVr PO Melatonin 10 MG AT BEDTIME 12/15 220 DC 12/15 PO 2134 Melatonin 10 MG AT BEDTIME NEED.. 12/14 1415 DC 12/14 PO 2144 Olanzapine 5 MG 12/13 12/15 PO 2134 Olanzapine 2.5 MG Q4H PRN 12/11 1515 AC PO Polyethylene Glycol 17 GM DAILY PRN 12/15 1145 AC 12/15 PO 1244 Senna 187 MG AT BEDTIME 12/15 2200 AC 12/15 PO 2135 Laboratory Tests 12/16 12/15 0600 1200 Chemistry Sodium Cancelled Potassium Cancelled Chloride Cancelled Carbon Dioxide Cancelled Anion Gap Cancelled BUN Cancelled Creatinine Cancelled BUN/Creatinine Ratio Cancelled Hematology CBC w Diff Cancelled WBC Cancelled RBC Cancelled Hgb Cancelled Hct Cancelled MCV Cancelled MCH Cancelled RDW Cancelled Plt Count Cancelled MPV Cancelled PUBS MCHC Cancelled Urines Urine Color Cancelled Urine Clarity Cancelled Urine pH Cancelled Ur Specific [place] Cancelled Urine Protein Cancelled Urine Ketones Cancelled Urine Nitrite Cancelled Urine Bilirubin Cancelled Urine Urobilinogen Cancelled Ur Leukocyte Esterase Cancelled Ur Microscopic Cancelled Urine Hemoglobin Cancelled Urine Glucose Cancelled Vital Signs Date Time Temp Pulse Resp B/P B/P Pulse O2 O2 Flow FiO2 Mean Ox Delivery Rate 12/16 0802 96.4 61 101/62 12/15 1939 98.5 65 120/59 12/15 1613 76 102/62 12/15 1220 51 89/54 MSE Appears as stated age. Cooperative behavior, good, appropriate eye contact. Nl speech rate and prosody. No psychomotor retardation or agitation. Mood depressed" Affect depressed, irritable, constricted, appropriate, non-liable. Linear and goal directed thought process but quite somatically preoccupied and perseverative. + passive SI denies active SI or HI. Does not appear to be responding to internal stimuli. Denies AVHs, paranoia, or delusions. I/J: limited A/P: Pt with unspecified psychosis vs delusional disorder, somatic type with some improvement in TP since admission but continued somatic preoccupation. - Senna, colace and miralax PRN added, monitoring for BMs - Increased melatonin to 12mg - Introduced idea of ECT to pt, very reticent - Encourage groups
--- NOTE | 2016-12-16 11:37 | NUR ---
Patient is A&O X 3, compliant with medication but verbalizes her inability to tolerates group therapies/activities. Patient is present in the community mostly at the lounge fully solving her words puzzles games. Patient continues to very somatic, reporting different body discomfort/uneasiness and her inability to move her bowels, but physically appears to be in no acute distress. vital sign is stable and within acceptable range, denies thought of self-harm and to someone else.
[2016-12-16 12:09] VITALS: BP 97/49
[2016-12-16 16:09] VITALS: BP 123/69
--- NOTE | 2016-12-16 17:29 | NUR ---
PT IS CALM, COOPERATIVE WITH STAFF AND PEERS, AND COMPLIANT WITH UNIT RULES. OFTEN IN MILIEU, INTERACTING WELL WITH OTHERS. MOOD IS STABLE, AFFECT IS EUTHYMIC TO FULL RNAGE, COMMUNICATION IS ORGANIZED AND APPEARS NORMAL IN ALL RESPECTS, AND APPETITE IS NORMAL. PT DENIES SI AT THIS TIME.
[2016-12-16 19:46] VITALS: BP 104/62
[2016-12-17 07:42] LABS: ABSOLUTE BASOPHIL COUNT 0 /CUMM (0.0-0.2); ABSOLUTE EOSINOPHIL COUNT 0.2 /CUMM (0.0-0.7); ABSOLUTE GRANULOCYTE CT 3.7 /CUMM (1.4-6.5); ABSOLUTE LYMPH COUNT 2.3 /CUMM (1.2-3.4); ABSOLUTE MONOCYTE COUNT 0.4 /CUMM (0.10-0.60); GRANULOCYTE % 55.6 % (42.2-75.2); MEAN CORPUSCULAR HGB 30.7 PG (27.0-31.0); MEAN CORPUSCULAR HGB CONC 33.7 G/DL (33.0-37.0); MEAN CORPUSCULAR VOLUME 91.3 FL (81.0-99.0); MEAN PLATELET VOLUME 9.1 FL (7.4-10.4); PLATELET COUNT 171 /CUMM (130-400); RBC DISTRIBUTION WIDTH 13.6 % (11.5-14.5); RED BLOOD CELL CT 4.05 /CUMM (4.20-5.40); WHITE BLOOD CELL COUNT 6.7 /CUMM (4.8-10.8)
[2016-12-17 07:46] VITALS: BP 98/55
[2016-12-17 07:47] LABS: LITHIUM 1.1 mmol/L (0.6-1.2)
--- NOTE | 2016-12-17 10:29 | SOCIAL WORKER PROG NOTE PSYCH ---
Social Work Progress Note Progress Note MICKEY attempted to reach Adrienne at [facility] regarding referring this pt. Main number indicated that the office was closed. A vm was left for Adrienne with a call back number.
--- NOTE | 2016-12-17 11:34 | SOCIAL WORKER PROG NOTE PSYCH ---
Social Work Progress Note Progress Note Sw spoke with Adrienne at [facility] by phone. Regarding referral, Adrienne requested that documentation is faxed to her. She stated that case management would be considered once the pt attends the intake assessment. Adrienne stated that she would contact this SW upon reviewing case with her route sales delivery drivers supervisor. outpatient providers.
--- NOTE | 2016-12-17 11:55 | NUR ---
PT IS COMPLIANT AND COOPERATIVE WITH UNIT RULES. PT IS OUT IN THE COMMUNITY INTERACTING WELL WITH STAFF AND PEERS. PT MOOD IS STABLE WITH A FULL RANGE AFFECT. PT IS ATTENDING GROUPS. PT GOAL THIS MORNING WAS TO "PREPARE FOR DISCHARGE" PT DENIES SI THOUGHTS.
[2016-12-17 12:07] VITALS: BP 110/56
[2016-12-17 15:58] VITALS: BP 106/69
--- NOTE | 2016-12-17 17:18 | SOCIAL WORKER PROG NOTE PSYCH ---
Social Work Progress Note Progress Note SW spoke with pt (and pt's ) by phone regarding outpt treatment. Pt and pt's were agreeable to the IOP at rather than [facility] services. They are still interested in case management services at [facility] and this SW will follow up with [facility] regarding this. SW assisted pt in calling [facility] [employer] to inquire about their transportation services and how to schedule these services.
--- NOTE | 2016-12-17 17:56 | SOCIAL WORKER PROG NOTE PSYCH ---
Social Work Progress Note Progress Note 4:05pm: Dr. Avery, this SW, patient and her met for a family meeting. Progress in treatment was discussed. Pt and her were informed that an intake has been scheduled with [facility] for 12/18/16 at 12:45pm. Both were in agreement with this discharge plan. Concerns about transportation from the intake were discussed and SW will contact [facility] to inquire about a later intake time. Pt and agreed to utilize [employer] services for transportation to/from appointments. Pt continues to be interested in care management services through [facility] and this SW will follow up with [facility] regarding this service. Dr. Magaña (pt's primary care provider) will be contacted regarding an appt as well. Pt discussed difficulty sleeping and med concerns with Dr. Avery today as well. SW attempted to reach [facility] regarding the change in appt time and was directed to call tomorrow to further address this concern.
--- NOTE | 2016-12-17 18:37 | CP SOUTH PROGRESS NOTE PSYCH ---
Psych (Inpt) Progress Note Progress Note Include the following elements, when applicable: Involvement in the active treatment of the patient with behavioral observations of the patient and the patient's response to the treatment. Review of the ongoing treatment process in the context of the treatment plan. Indication of how multi-disciplinary staff members are carrying out the treatment plan. Plans for future interventions and recommendations for revision of the treatment plan. Liaison with other physicians/providers. Progress Note: PSYCHIATRIST NOTE (COUPLE'S MEETING), 12/17/2016: I discussed this patient's slow progress to date, current mental status, treatment and discharge planning with staff team today in the daily morning ITTAdán and Joi Arroyo LCSW, and I met with patient and her again in a couple's session. This meeting was much more positive than our initial meeting last week, both patient and her spouse evidencing more positive affect and demonstrating a much better ability to work together. Patient did not have one bad thing to say about today and was no longer critical and significantly warmer; in fact, when they left the conference room they were walking arm-in-arm seemingly happily. Patient's serum [place] level was up to 1.1mEq/L this morning; she complained vaguely about "not feeling right," and I think [place] concentration is too high for her; I plan to hold Lithum dose tonight and then restart at lower dose of 300mg 2x/day tomorrow, 12/18/2016; at the same time I will increase HS Zyprexa; she has not been sleeping well and failing to receive or refusing PRN Zyprexa; I am also concerned about this with the reduction in [place] dose by one-third. Patient plans to follow up with regard to remaining physical concerns with her current PCP, Dr. Magaña and I need an appointment with him confirmed prior to planned discharge to IOP Intake tomorrow.
[2016-12-17 19:50] VITALS: BP 112/72
--- NOTE | 2016-12-17 19:58 | NUR ---
PT HAS BEEN VISIBLE IN THE MILEU AND HAS BEEN MODERATELY SOCIAL. SHE IS EXPECTING DC SOON AND LOOKING FORWARD TO CONNECTING WITH OLD FRIENDS AND TRYING TO STAY MOTIVATED. PT HAS DENIED ANY THOUGHTS OF SI AND HAS MAINTAINED A STABLE MOOD THROUGHOUT THE SHIFT.
--- NOTE | 2016-12-18 04:53 | NUR ---
SLEPT WELL LOOKING FORWARD TO DISCHARGE TODAY.
[2016-12-18 07:33] VITALS: BP 120/68
--- NOTE | 2016-12-18 11:02 | SOCIAL WORKER PROG NOTE PSYCH ---
Social Work Progress Note Progress Note 10:33am: Mickey spoke with Adrienne at [facility] who was informed that the pt will not need outpt MH services at [facility] (pt will pursue IOP treatment at [facility]). Adrienne stated that the pt would be able to utilize care management services as long as she is engaged in MH services (it is not required that the MH services at [facility]). SW will relay this message to the [facility] with case management referral made as determined during intake. 11:00am: MICKEY spoke with Nestor Merchant LPC, [facility]. Pt's intake appointment will be rescheduled to 3:00pm in order to accommodate pt's transportation. Pt was informed of this and accepted the new appt time. Pt stated that she was not comfortable signing a ANDREA for Dr. Magaña as she is concerned that her MH "issues" would have a negative impact on their relationship. Pt stated that she would call to schedule an appt. She was also informed that she could speak with the IOP should she wish to sign a ANDREA for this provider at a later time. MICKEY met with pt to review discharge plans. Pt appeared motivated to attend IOP and the [facility] intake today. She will speak with the IOP clinician(s) regarding whether or not she will pursue case management services at [facility] as well as scheduling an appt with Dr. Magaña (PCP). She will also speak with the intake/IOP clinician about scheduling transportation with [employer] once she is informed of the treatment schedule. Pt spoke with her by phone to inform him that she will be attending the intake today at 3pm and to provide him with the address as he will be picking her up from the intake today.
[2016-12-18 12:07] VITALS: BP 119/71
--- NOTE | 2016-12-18 12:27 | NUR ---
PT IS ALERT AND ORIENTED AND HAS NO ISSUES OR COMPLAINTS AND NO DELUSIONS THUS FAR REPORTED OR OBSERVED. MOOD IS STABLE WITH FULL RANGE AFFECT AND SCHEDULED TO GO TO AN IOP INTAKE [address] AT 3PM AND PT VERBALIZES UNDERSTANDING OF THIS AND MEDICATION REGIMENT AND MOTIVATION, FEELS READY AND OVERALL IMPROVED IN MOOD/BEHAVIOR/MENTAL STATUS/SLEEP/APPETITE. WHEN ASKED DIRECTLY DENIES SI/HI/HALLUCINATIONS. PT RESOURCE GUIDE AND W-1- REVIEWED WITH PT WITH NO QUESTIONS AND INFORMATION PACKET RE: SCHIZOPHRENIA AND SI GIVEN TO PT WELL. PT IS PRESENT WITHIN THE MILIEU, SOCIAL AND APPROPRIATE WITH PEERS AND STAFF.
[2016-12-18] MEDS ORDERED: OLANZAPINE10 M1 PO (13:27)
[2016-12-18] MEDS ORDERED: LITHIUM CARBON300 M4 PO (13:27)
--- NOTE | 2016-12-18 15:45 | DISCHARGE SUMMARY REPORT-PSYCH ---
Visit Information Visit Dates/Diagnosis' Admission Date: 12/04/16 Discharge Date: 12/18/16 Reason for Admission: "I have real kidney disease...I don't know why I am here...I just want to ...I can't go back to my condo; there's piles of stuff everywhere; there's going to be 'rats' soon. Please let me . Nobody wants me anymore. Everyone has abandoned me. I can't take care of myself because I'm too bloated to be able to walk. I can't eat because it just makes me more bloated. I smell because I can't take a shower." Psy Discharge Primary Diag: Unspecified Depressive Disorder with Psychotic Features (florid somatic delusions/ruminations of her own imminent ) R/O Unspecified Bipolar Hospital Course Significant Lab Findings: glucose = 125; total bilirubin = 1.8 and 0.8; AST = 41 and 25, ALT = 56 and 52, GGT = 13; free T4 = 1.95 and 1.23; RBC = 4.05; ALE = less than 10.0; urine for drugs of abuse--positive for benzodiazepines (greater than 800ng/ml); for complete listing of all normal range laboratory data from this admission, see the electronic medical record Course Complications: none Consultations: patient was seen for an admission medical H&P and followed medically during this admission by You Lyon M.D. Allergies: Coded Allergies: erythromycin base (PALPATIONS 12/03/16) Hospital Course/TX Response: (see also, all initial/admission assessments and daily [employer]/INFORMATION TECHNOLOGY CONSULTANT and TUBE FILLER progress notes which are contained in the electronic medical record) This patient is currently "fixated" on being physcally ill, hopeless, helpless and on the verge of , in something mohit to what used to be referred to as a psychotic depression. There also appear to be some conversion ("hysterical") symptoms such as that she is too weak to walk on her own despite adequate objective evidence that this is not the case due to physical impairment; there are also other symptoms with themes of contamination and decay, that others are putting garbage into her condo because "it is already such a dirty mess," that her condo is being condemned and because of this her whole condo complex will have to be torn down as well. We began by treating with a low dose neuroleptic and likely titrate dose upwards and add a primary anti-depressant and/or mood stabilizer after a few days treatment with the anti-psychotic medication. Possibly "terminal" problems in patient's marital relationship may contribute to symptomatology and sense of hopelessness; patient said just told her he wants a divorce but apparently he has completely denied this or any intention of doing so. We need to obtain outside corroborating backgroud history from other primary relatives and/or close friends and the discharge summary from her admission to [facility] in 2011; a meeting with estranged spouse should wait for a time when the patient herself is less mentally preoccupied with somatic delusions. Ultimately, patient would likely be best served by entering the [facility] for more extended monitoring/treatment, as her current symptoms may not be short-lived. There may be question as to where she will be staying/residing immediately post-discharge (?with her brother locally; or perhaps with sister who lives in [place] in which case adequate aftercare/treatment arrangements in that area will have to be organized. Patient was discharged directly/seamlessly to intake at the [facility] at 3pm on day of discharge ( will meet her and bring her home from there following the intake). Currently, she hardly makes reference to the multiple somatizations which appeared to torment her upon presentation to [facility] and for several days thereafter; though insisting that her health/life were tenuous at best she was determined to persevere in the face of it; she was quite bright, cheerful, smiling broadly today, still joking about me being "the sharp dressed man," from the [employer] recording (getting quite a chuckle out of that in fact), happy to be going home with her spouse, euthymic, future-oriented, without any evidence of suicidal or homicidal ideation, plans, intent or impulses and well aware of her safety plan should she ever in future come to believe herself at risk of self-harm or harming others; in fact, she had no such feelings/urges during this admission despite believing for a while that her multiple "physical " ailments would be doing her in soon; upon discharge her preoccupation with somatic worries was minimal and there was no other evidence of disordered thinking/delusions. Though patient said she plans to make an appointment with her PCP, Dr. Magaña, upon her return home, she did not want us to schedule one for her and would not sign a ANDREA for us to speak with him during this admission or upon discharge. Discharge HBIPS - Tobacco Use Treatment Offered Post DC Medications Offered: Refused Tob Medication Tx Post DC Tobacco Treatment Plan: [facility] Appt Date: 12/19/16 Program Appt Time: 1600 (next group is on 12/19/16 at 4pm) - EtOH/Drug Use D/O Treatment Offered Post DC Medications Offered: NA-No EtOH/Drug Use D/O Post DC EtOH/SubAbuse TX Plan: NA-No EtOH/Drug Use D/O Metabolic Screening - Screen if on a Neuroleptic Medication - Metabolic screening should include: - Blood Pressure, BMI, Glucose or Hgb A1c, & a - Lipid profile from within the past 365 days. Metabolic Screening () Not Applicable, patient not on a neuroleptic. OR ([x]) Patient on a neuroleptic(s) . Enter below results for Glucose or Hemoglobin A1C, and lipid panel if obtained during the last 365 days. BMI: 22.000 Blood Pressure: 119/71 Laboratory Results (If applicable): [x] glucose = 125 (drawn on 12/03/2016) glycos hgb A1c = 4.8 (drawn on 12/04/2016) cholesterol = 159 (all below drawn on 12/04/2016) triglycerides = 101 HDL = 55 LDL = 84 Discharge Instructions General Discharge Information Discharge Medications: I called into [facility] in [place], [place] on date of discharge, 2016: [place] carbonate, 300mg: i tab 2x/day (600mg daily); #28 with no refill (to stabilize moods) Zyprexa, 10mg: i tab nightly at HS (10mg/night); #14 with no refill (to clarify thoughts/resolve delusional ideas) patient had said she did not smoke everyday and refused to use medication to reduce craving for cigarettes/tobacco during this admission and at time of discharge going forward but was given an appointment card for the next [facility] scheduled for 12/26/2016 at 4pm, facilitated by Jyothi Kearney LCSW, and urged to attend patient does not drink alcohol and knows that such would not be recommended while taking above medications Multiple Neuroleptics: ([X]) Not Applicable OR Document below three failed attempts at monotherapy, or a plan to taper to monotherapy, or augmentation of Clozapine. () Patient's Diet: heart healthy Patient's Activity: without restrictions DC Disposition: to home with Recommendations: Following an interval of outpatient stabilization, I would recommend attempt be made to gradually taper current dose of Zyprexa. Referred To: Patient was referred directly to intake at the [facility] at 3pm on the day of discharge. She will resume her regular consultations with her PCP, Dr. Magaña ( would not give ANDREA for us to speak with Dr. Magaña during this admission); patient preferred to schedule her own aftercare appointment. She was given an appointment card for the next [facility] scheduled for 2016 at 4pm, facilitated by Jyothi Kearney LCSW. Copies To: ISHA ROSADO,CAMRON NARAYAN [facility] TATIANA QUINTANILLA
--- NOTE | 2016-12-18 15:45 | CP SOUTH PROGRESS NOTE PSYCH ---
Psych (Inpt) Progress Note Progress Note Include the following elements, when applicable: Involvement in the active treatment of the patient with behavioral observations of the patient and the patient's response to the treatment. Review of the ongoing treatment process in the context of the treatment plan. Indication of how multi-disciplinary staff members are carrying out the treatment plan. Plans for future interventions and recommendations for revision of the treatment plan. Liaison with other physicians/providers. Progress Note: PSYCHIATRIST NOTE (DISCHARGE), 12/18/2016: I discussed this patient's slow but now significant progress to date, current mental status, treatment and discharge plans with staff team today in the daily morning ITTM and met with her again myself in individual session prior to discharging her directly/seamlessly to intake at the [facility] at 3pm on day of discharge ( will meet her and bring her home from there following the intake). Currently, she hardly makes reference to the multiple somatizations which appeared to torment her upon presentation to [facility] and for several days thereafter; though insisting that her health/life were tenuous at best she was determined to persevere in the face of it; she was quite bright, cheerful, smiling broadly today, still joking about me being "the sharp dressed man," from the [employer] recording (getting quite a chuckle out of that in fact), happy to be going home with her spouse, euthymic, future-oriented, without any evidence of suicidal or homicidal ideation, plans, intent or impulses and well aware of her safety plan should she ever in future come to believe herself at risk of self-harm or harming others; in fact, she had no such feelings/urges during this admission despite believing for a while that her multiple "physical " ailments would be doing her in soon; upon discharge her preoccupation with somatic worries was minimal and there was no other evidence of disordered thinking/delusions. Though patient said she plans to make an appointment with her PCP, Dr. Magaña, upon her return home, she did not want us to schedule one for her and would not sign a ANDREA for us to speak with him during this admission or upon discharge. (for listing of medications prescribed at time of discharge, dosages, scheduling /frequency and indications, see the discharge summary from this admission in the electronic medical record)
== END 2016-12-18 16:00 | DRG 885 ==
LOC: ERH 11:36 → ERHI 12-04 10:37 → CP SOUTH 12-04 10:37 → ENTRNSPT 12-04 13:09 → EDTRNSPTTYP 12-04 13:15 → EDTRNSPT 12-04 13:15 → CMPTRNSPT 12-04 13:17 → CP SOUTH 12-04 13:25
PROVIDERS: Emergency Medicine; Psychiatry & Neurology Addiction Medicine; Student in an Organized Health Care Education/Training Program; ADMIT Psychiatry & Neurology Psychiatry
DX: F32.3 Major depressive disorder, single episode, severe with psychotic features (principal)
CPT/HCPCS: 86618; 36415; 80307; 81003; 81025; 82436; 86376; 86800; 87086; 96372; 99291; G0463; G0480; J1200; J3490